=== PATIENT | female | born 1985 | race Caucasian/White ===

== ENCOUNTER 2023-11-11 10:35 | Emergency (ER) | payer BC, SELFPAY ==
[2023-11-11] VITALS (7 sets, daily range): BP systolic 97–126; BP diastolic 60–76; PULSE 64–88; RESP 16–20; TEMP 36.4–36.8; O2SAT 98–100; BMI 24.8
--- NOTE | ~2023-11-11 | MR_ITS ---
EXAMINATION: MR LUMBAR SPINE WITHOUT CONTRAST CLINICAL INFORMATION: Low back pain and incontinence. COMPARISON: None. TECHNIQUE: Multiplanar, multisequence imaging was obtained. FINDINGS: At the L5-S1 level, there is very mildly reduced intradiscal signal without loss of disc height. A broad-based, shallow left paracentral to left subarticular zone disc protrusion impresses upon the ventral thecal sac and the left S1 nerve root. No central canal stenosis is seen at this level. There is mild left foraminal narrowing from bulging disc and endplate spurring. The remaining lumbar discs are fairly well hydrated. Small inferior endplate Schmorl's node noted at the L2 level. The central canal and neural foramina in the remainder of the lumbar spine is widely patent. The marrow signal is normal. There are no subluxations or compression fractures. Mild to moderate loss of disc height with mild endplate spurring visible at the T11-T12 level. The cauda equina nerve roots are normal. The conus tip terminates at the lower L2 level. There is a thickened fatty filum seen from the L5 through sacral levels, which measures up to 2.8 mm TV. The paraspinal soft tissues are normal. Small 1 cm right renal cyst incidentally noted. The bladder is distended without wall thickening. MR/MR lumbar spine wo con IMPRESSION: Mild spondylosis at the L5-S1 level with a shallow, broad-based left paracentral/subarticular zone disc protrusion resulting in mild mass effect upon the left S1 nerve root. No central canal stenosis. Normal termination of the conus tip with a thickened fatty filum visible from the L5 through sacral levels. Correlate for any chronic symptoms of cord tethering phenomenon. Electronically signed by: Lv Payne MD 11/11/2023 02:40 PM EDT
--- NOTE | 2023-11-11 11:08 | ED_ITS ---
HPI - General Adult General Chief complaint: Back Pain/Injury Stated complaint: back pain-disc concerns Time Seen by Provider: 11/11/23 11:26 History of Present Illness ED Provider: Chalino PANDA narrative: Patient is a 38-year-old female. She has a history of bipolar disorder but is otherwise healthy and active. Until just a few days ago she has been living in [place], [place], but has since relocated to this area. About 3 or 4 weeks ago the patient was with family in [place] when she started to experience left lower back pain. Her symptoms continued until they became fairly severe and she ended up going to the [facility] Emergency room in [place]. She was treated and released in a few days later followed up with her primary care doctor in the [place] part of the [facility]. She was advised to go to a local emergency room and she went to the [facility] emergency room in [place]. She apparently had an overnight hospitalization. Apparently she was admitted for a low phosphorus level and also for pain control. She had an MRI that showed a bulging disc. She was discharged with pain medications and recommendations to start physical therapy. She has been told that she would need to be seen immediately if she had any worsening of her symptoms. She said that her symptoms were doing fairly well until this morning. She had no significant pain last night when she went to bed. She got up at around 06:00 this morning to go for a walk. She drove to a park and while sitting on a park bench after a walk she started to experience a recurrence of her left lower back pain. She got into her car and that seemed to make things worse. She drove home and laid in bed hoping things would feel better. She started to feel numbness in the left buttock and left leg. While lying in bed she suddenly felt wet and she believes that she had lost her urine without feeling it. She became quite frightened and drove herself to the emergency room. She has had no fever, sweats, chills. Related Data Previous Rx's ?Medication ?Instructions ?Recorded cyclobenzaprine 10 mg tablet 10 mg PO TID PRN muscle spasm #14 11/11/23 tabs hydromorphone 2 mg tablet 2 mg PO Q6H PRN pain #18 tabs 11/11/23 ibuprofen 400 mg tablet 400 mg PO Q6H PRN pain #20 tabs 11/11/23 sodium di- and 1 tab PO BID #30 tabs 11/11/23 monophosphate-potassium phos monobasic 250 mg tablet (Phosphorous) Allergies Allergy/AdvReac Type Severity Reaction Status Date / Time Iodinated Contrast Media AdvReac Unknown Verified 11/11/23 11:11 [Contrast Dye] Review of Systems 2 Review of Systems: Yes all other systems are reviewed and are negative [facility] Social History Social History Smoked in Last 30 Days: No Advance Directives: Yes Advance Directives Information Provided: Yes Advance Directives on File: No Do you have a plan to hurt others: No Plan Patient : No Physical Exam ED Vital Signs: Vital Signs - 24 hr 11/11/23 11:07 11/11/23 12:04 11/11/23 15:00 Temperature 97.6 F Pulse Rate 88 68 Respiratory Rate 16 16 16 Blood Pressure 126/76 113/70 Pulse Oximetry 98 100 98 Oxygen Delivery Method Room Air Room Air Room Air 11/11/23 15:03 11/11/23 15:33 11/11/23 15:57 Temperature 98.2 F Pulse Rate 64 66 Respiratory Rate 16 18 20 Blood Pressure 97/70 110/60 Pulse Oximetry 100 99 98 Oxygen Delivery Method Room Air Room Air Room Air 11/11/23 18:00 Temperature 98.2 F Pulse Rate 66 Respiratory Rate 20 Blood Pressure 110/60 Pulse Oximetry 98 Oxygen Delivery Method Room Air BMI result Body Mass Index 24.8 Const Other: The patient is a 38-year-old woman who looks as though she is ordinarily in good physical health. She seems uncomfortable and is very anxious. HENGA Other: The appearance of the face is normal. The face is symmetrical. Mucous membranes moist. Eyes Other: Pupils are round equal, conjunctivae are clear, extraocular movements intact. Neck Other: Moving her neck easily Resp Effort & Inspection: normal respiratory effort Auscultation: clear to auscultation bilaterally Cardio Rate: regular rate Rhythm: regular rhythm Heart sounds: S1 normal heart sound present and S2 normal heart sound present GI Other: Abdomen is soft and nontender Skin Other: Skin is dry and unremarkable Neuro Other: The patient is awake and alert with a normal mental status. Face is symmetrical, speech is clear, eye movements intact. She moves her arms normally. She moves her right leg normally. She is able to move the left leg but seems to have discomfort when she does so. No obvious definite loss of motor function. She reports diminished sensation in the leg and in the left buttock. She has 2+ symmetrical reflexes at the knees and ankles. The right toe got his down. The left toe is equivocal. Extrem Other: No calf swelling or tenderness, no peripheral edema Course Course Course Narrative: This is an RME performed by Az Eng CNP: Additional HPI, ROS, PE not included below will be deferred to primary provider. Patient is a 38 year old female presents emergency department for evaluation. She reports approximately 2 weeks ago she was evaluated at [facility] in [place]. She was experiencing lower back pain. She had an MRI which revealed a bulging disc, does not recall the exact location. She states that her phosphorus levels were also very lower time. She was advised to trial a course of physical therapy but given strict return precautions for re-evaluation. She states that today she was getting into bed when she had urinary incontinence any acknowledgement of it. She denies any chest pain bowel incontinence. She states that after this occurred she has noticed pain radiating down to her buttock and down the left leg with numbness and tingling which she does not previously experiencing. Ambulatory with slow steady gait Medications Administered Discontinued Medications Generic Name Dose Route Start Last Admin Trade Name Yolande PRN Reason Stop Dose Admin Cyclobenzaprine HCl 10 mg 11/11/23 16:55 11/11/23 17:35 Cyclobenzaprine Hcl 10 Mg Tablet PO 11/11/23 16:56 10 mg ONCE ONE Administration Hydromorphone HCl 0.5 mg 11/11/23 12:48 11/11/23 12:55 Hydromorphone Hcl 0.5 Mg/0.5 Ml Syringe IVPUSH 11/11/23 12:49 0.5 mg ONCE ONE Administration Protocol Hydromorphone HCl 0.5 mg 11/11/23 14:11 11/11/23 15:18 Hydromorphone Hcl 0.5 Mg/0.5 Ml Syringe IVPUSH 11/11/23 14:12 0.5 mg ONCE ONE Administration Protocol Hydromorphone HCl 2 mg 11/11/23 16:55 11/11/23 17:34 Hydromorphone Hcl 2 Mg Tablet PO 11/11/23 16:56 2 mg ONCE ONE Administration Sodium Chloride 1,000 mls @ 999 mls/hr 11/11/23 12:15 11/11/23 17:35 Ns IV 11/11/23 13:15 Infused .Q1H1M REVA Infusion Ibuprofen 400 mg 11/11/23 16:55 11/11/23 17:34 Ibuprofen 400 Mg Tablet PO 11/11/23 16:56 400 mg ONCE ONE Administration Ketorolac Tromethamine 10 mg 11/11/23 15:21 11/11/23 16:01 Ketorolac Tromethamine 15 Mg/Ml Vial IVPUSH 11/11/23 15:22 10 mg ONCE ONE Administration Lorazepam 1 mg 11/11/23 12:59 11/11/23 12:55 Lorazepam 2 Mg/Ml Vial IVPUSH 11/11/23 13:00 1 mg ONCE ONE Administration Morphine Sulfate 4 mg 11/11/23 11:49 11/11/23 12:02 Morphine Sulfate 4 Mg/Ml Cartridge IVPUSH 11/11/23 11:50 4 mg ONCE ONE Administration Protocol Ondansetron HCl 4 mg 11/11/23 11:56 11/11/23 12:02 Ondansetron Hcl 4 Mg/2 Ml Vial IVPUSH 11/11/23 11:57 4 mg ONCE ONE Administration Potassium Phos/Sodium Phos 2 packet 11/11/23 15:21 11/11/23 16:01 Sodium,Potassium Phosphates Powd.Pack PO 11/11/23 15:22 2 packet ONCE ONE Administration Medical Decision Making Medical Decision Making [facility] Narrative: The patient is a 38-year-old female who was recently hospitalized at [facility] in [place] for acute low back pain with findings of a herniated disc. She was discharged with plans to follow up with physical therapy and was doing well until this morning when she had a recurrence of her severe low back pain. The symptoms this morning or associated with a sense of numbness and tingling in the left buttock and left leg. She reports an episode of urinary incontinence in her bed as well. On exam the patient does not have a fever or seem toxic in any way. She has symmetrical reflexes at the knees and ankles. She reports diminished sensation in the left buttock and in the left leg generally. Given her description of the episode of urinary incontinence I felt an MR to evaluate for cauda equina was not unreasonable. The MR shows an L5-S1 disc herniation with mass effect on the left S1 nerve root but without central canal stenosis. The radiologist also notes a normal termination of the conus tip with a thickened fatty filum visible from the L5 through sacral levels. He recommended correlation for any chronic symptoms of cord tethering phenomenon. My overall take on the MR is that this does not represent an acute case of cauda equina or neurosurgical emergency. The patient was treated symptomatically with improvement in her pain. She was able to walk. She was able to void with essentially complete emptying of her bladder. No postvoid residual of any significance. Coincidentally the patient told me that when she has been hospitalized at [facility] she has been found to have a very low phosphorus level. Her phosphorus today is 1.0. It is not clear why she has this persistent problem. I will prescribe supplemental phosphorus in addition to pain medications for her left- sided sciatica syndrome. She was prescribed hydromorphone, cyclobenzaprine, and ibuprofen as needed for pain. The patient recently moved to this area from the [facility]. Her primary care doctor is in the [facility]. Additionally she plans on following up with the neurosurgeon at [facility]. She is advised to contact her PCP and the Neurosurgery office tomorrow to set up follow up care. Lab Data 11/11/23 12:00 11/11/23 12:00 Labs: Lab Results 11/11/23 11/11/23 Range/Units 12:00 16:22 WBC 9.1 (4.8-10.8) X10*3/uL RBC 4.55 (4.20-5.50) X10*6/uL Hgb 14.1 (12.0-16.0) g/dl Hct 41.6 (37.0-47.0) % MCV 91.4 (80.0-98.0) fL MCH 31.0 (27.0-33.0) pg MCHC 33.9 (31.0-35.0) g/dl RDW 12.1 (11.0-16.0) % Plt Count 395 (160-400) X10*3/uL MPV 9.9 (9.4-12.3) fL Immature Gran % (Auto) 0.4 (0.0-0.4) % Neut % (Auto) 88.0 H (45-73) % Lymph % (Auto) 8.9 L (20-40) % [place] % (Auto) 2.2 (2-11) % Eos % (Auto) 0.1 (0-4) % Baso % (Auto) 0.4 (0-2) % Lymph # (Auto) 0.8 L (1.2-4.9) X10*3/uL [place] # (Auto) 0.2 (0.1-1.2) X10*3/uL Eos # (Auto) 0.0 (0.0-0.4) X10*3/uL Baso # (Auto) 0.0 (0.0-0.2) X10*3/uL Abs Immat Gran (auto) 0.04 H (0.00-0.03) X10*3/uL Absolute Neuts (auto) 8.0 (2.0-8.3) x10*3/uL Absolute Nucleated RBC 0.000 (0.0-0.012) X10*3/uL Nucleated RBC % (auto) 0.0 (0.0-0.2) /100WBC Hold Purple Top SEE NOTE Sodium 138 (135-145) mmol/L Potassium 4.3 (3.3-5.1) mmol/L Chloride 105 (96-108) mmol/L Carbon Dioxide 22 (22-29) mmol/L Anion Gap 15 (12-20) BUN 12 (9-16) mg/dL Creatinine 0.91 (0.5-1.4) mg/dL Estim Creat Clear Calc 73.7 Estimated GFR > 60 Random Glucose 118 H (60-115) mg/dL Calcium 9.8 (8.4-10.2) mg/dL Phosphorus 1.0 L* (2.7-4.5) mg/dL Magnesium 2.0 (1.6-2.6) mg/dL Total Bilirubin 0.4 (0.0-1.0) mg/dL Direct Bilirubin 0.1 (0.0-0.5) mg/dL AST 26 (5-31) U/L ALT 31 (0-31) U/L Alkaline Phosphatase 176 H (39-117) U/L Total Protein 7.6 (6.5-8.0) g/dL Albumin 4.6 (3.5-5.0) g/dL Beta HCG, Quant < 2 mIU/mL Urine Color Yellow Urine Appearance Clear Urine pH 8.5 (5.0-9.0) Ur Specific [place] 1.010 (1.005-1.025) Urine Protein Negative (Neg-Trace) mg/dL Urine Glucose (UA) Negative (Negative) mg/dL Urine Ketones 15 (Negative) mg/dL Urine Blood Negative (Negative) Urine Nitrite Negative (Negative) Ur Leukocyte Esterase Negative (Negative) Discharge Plan Discharge Clinical Impression: Acute bilateral low back pain with left-sided sciatica, Herniation of intervertebral disc between L5 and S1, Left sided sciatica Patient Disposition: Home, Self-Care Additional Instructions: Your MRI today shows a herniated disc at L5-S1 but does not show findings of an acute neurosurgical emergency. I have sent prescriptions to help manage your pain to your pharmacy. These include hydromorphone (Dilaudid), cyclobenzaprine (Flexeril), and ibuprofen. In addition to using these medications you may take 2 extra-strength acetaminophen (Tylenol) up to 3 times a day as well. Your phosphorus today was also low. I have sent a prescription for supplemental phosphorus for you to take. Please plan on calling your regular doctor in the morning to discuss how you are doing. Also contact the Neurosurgery office in [place] you has been in contact with already. Please discuss plans for follow up for your herniated disc and to discuss your low phosphorus levels. Please start trying to work on getting a local primary care doctor as well. Return to the emergency room if significantly worse. Prescriptions: New cyclobenzaprine 10 mg tablet 10 mg PO TID PRN (Reason: muscle spasm) Qty: 14 0RF ibuprofen 400 mg tablet 400 mg PO Q6H PRN (Reason: pain) Qty: 20 0RF Phosphorous 250 mg tablet 1 tab PO BID Qty: 30 0RF hydromorphone 2 mg tablet 2 mg PO Q6H PRN (Reason: pain) Qty: 18 0RF Rx Instructions: Partial Fill upon patient request. Interventions: ED Discharge Assessment Last Done: 11/11/23 18:00 Discharge Date/Time: 11/11/23 18:02 Print Language: Mexican
[2023-11-11] MEDS: Morphine Sulfate 4 MG/ML CARTRIDGE IVPUSH (12:02)
[2023-11-11] MEDS: ondansetron HCL 4 MG/2 ML VIAL IVPUSH (12:02)
[2023-11-11 12:05] LABS: MANUAL DIFF FLAG NO
[2023-11-11 12:08] LABS: Basophils Percent Auto 0.4 % (0-2); Eosinophils Percent Auto 0.1 % (0-4); Hematocrit 41.6 % (37.0-47.0); Hemoglobin 14.1 g/dl (12.0-16.0); Imm Gran Abs Auto 0.04 X10*3/uL (0.00-0.03); Imm Gran Pct Auto 0.4 % (0.0-0.4); Lymphocytes Absolute Auto 0.8 X10*3/uL (1.2-4.9); Lymphocytes Percent Auto 8.9 % (20-40); Mean Corpuscular HGB Conc 33.9 g/dl (31.0-35.0); Mean Corpuscular Volume 91.4 fL (80.0-98.0); Mean Platelet Volume 9.9 fL (9.4-12.3); Monocytes Absolute Auto 0.2 X10*3/uL (0.1-1.2); Monocytes Percent Auto 2.2 % (2-11); Platelet Count 395 X10*3/uL (160-400); Red Blood Count 4.55 X10*6/uL (4.20-5.50); Red Cell Distribution Width 12.1 % (11.0-16.0); White Blood Count 9.1 X10*3/uL (4.8-10.8)
[2023-11-11] MEDS: 0.9 % Sodium Chloride 1,000 ML 999 ML IV (12:08)
[2023-11-11 12:37] LABS: Alanine Aminotransferase 31 U/L (0-31); Albumin Level 4.6 g/dL (3.5-5.0); Alkaline Phosphatase 176 U/L (39-117); Anion Gap 15 (12-20); Aspartate Amino Transferase 26 U/L (5-31); Bilirubin Direct 0.1 mg/dL (0.0-0.5); Bilirubin Total 0.4 mg/dL (0.0-1.0); Blood Urea Nitrogen 12 mg/dL (9-16); Calcium 9.8 mg/dL (8.4-10.2); Carbon Dioxide 22 mmol/L (22-29); Chloride 105 mmol/L (96-108); Creatinine Clr Calc Pharmacy 73.7; Estimated Glomerular Filt Rate > 60; Glucose Random 118 mg/dL (60-115); Potassium 4.3 mmol/L (3.3-5.1); Sodium 138 mmol/L (135-145); Total Protein 7.6 g/dL (6.5-8.0)
[2023-11-11] MEDS: LORazepam 2 MG/ML VIAL 1 MG IVPUSH (12:55)
[2023-11-11] MEDS: HYDROmorphone HCl 0.5 MG/0.5 ML SYRINGE IVPUSH ×2 (12:55→15:18)
[2023-11-11 13:08] LABS: HCG Quantitative < 2 mIU/mL
--- NOTE | 2023-11-11 15:20 | ECG_ITS ---
Test Reason : BACK PAIN Blood Pressure : / mmHG Vent. Rate : 064 BPM Atrial Rate : 064 BPM P-R Int : 126 ms QRS Dur : 080 ms QT Int : 432 ms P-R-T Axes : -23 048 033 degrees QTc Int : 445 ms Normal sinus rhythm Normal ECG No previous ECGs available Referred By: Alex Allred Electronically Signed By:CARLOS JIMENEZ
[2023-11-11] MEDS: Ketorolac Tromethamine 15 MG/ML VIAL 10 MG IVPUSH (16:01)
[2023-11-11] MEDS: Sodium,Potassium Phosphates POWD.PACK 2 PACKET PO (16:01)
--- NOTE | 2023-11-11 16:33 | PC.NURSE ---
able to ambulate to bathroom with minimal assist. reports slight dizziness but was steady on feet. just slow.
[2023-11-11 16:42] LABS: Appearance Urine Clear; Color Urine Yellow; Glucose Urine UA Negative (Negative); Leukocyte Esterase Urine Negative (Negative); Nitrite Urine Negative (Negative); PH 8.5 (5.0-9.0); Urine Blood Negative (Negative); Urine Ketones 15 mg/dL (Negative); Urine Protein Negative (Neg-Trace)
[2023-11-11] MEDS: HYDROmorphone HCl 2 MG TABLET PO (17:34)
[2023-11-11] MEDS: Ibuprofen 400 MG TABLET PO (17:34)
[2023-11-11] MEDS: Cyclobenzaprine HCl 10 MG TABLET PO (17:35)
== END 2023-11-11 18:02 | disposition home or self-care (01) ==
PROVIDERS: Emergency Provider Emergency Medicine
DX: M54.42 Lumbago with sciatica, left side (principal); M54.41 Lumbago with sciatica, right side; M51.27 Other intervertebral disc displacement, lumbosacral region; M79.605 Pain in left leg; R10.2 Pelvic and perineal pain; Z79.899 Other long term (current) drug therapy
CPT/HCPCS: 36415; 51798; 72148; 80048; 80076; 81003; 83735; 84100; 84702; 85025; 93005; 96372; 96374; 96375; 96376; 99284; 99285; J1170; J1885; J2060; J2270; J2405

== ENCOUNTER 2024-07-23 21:07 | Emergency (ER) | payer BC, SELFPAY ==
--- NOTE | ~2024-07-23 | CT_ITS ---
CLINICAL HISTORY: left flank pain, ureetral stone? CT abdomen and pelvis without contrast Comparison: None Findings: Minor dependent atelectasis at the lung bases. Cholecystectomy. Abdominal solid organs unremarkable. No urolithiasis. No bowel obstruction, pneumoperitoneum, or pneumatosis. Moderate to large amount of stool. No body wall hernia. Uterus and ovaries unremarkable. Appendectomy. Physiologic amount of fluid in the pelvis. No acute fracture. IMPRESSION: 1. No urolithiasis or hydronephrosis. 2. Moderate to large amount of stool without bowel obstruction. This document has been electronically signed by: Real Akers MD on 07/23/2024 23:09:28
[2024-07-23 21:10] VITALS: BP 124/81; PULSE 100; RESP 16; TEMP 36.9; O2SAT 99; BMI 23.1
[2024-07-23 21:36] LABS: Basophils Percent Auto 0.2 % (0-2); Eosinophils Absolute Auto 0.1 X10*3/uL (0.0-0.4); Eosinophils Percent Auto 0.5 % (0-4); Hematocrit 33.8 % (37.0-47.0); Hemoglobin 11.3 g/dl (12.0-16.0); Imm Gran Abs Auto 0.03 X10*3/uL (0.00-0.03); Imm Gran Pct Auto 0.3 % (0.0-0.4); Lymphocytes Absolute Auto 0.8 X10*3/uL (1.2-4.9); Lymphocytes Percent Auto 8.5 % (20-40); MANUAL DIFF FLAG SCAN; Mean Corpuscular HGB Conc 33.4 g/dl (31.0-35.0); Mean Corpuscular Hemoglobin 30.9 pg (27.0-33.0); Mean Corpuscular Volume 92.3 fL (80.0-98.0); Mean Platelet Volume 9.9 fL (9.4-12.3); Monocytes Absolute Auto 1.7 X10*3/uL (0.1-1.2); Monocytes Percent Auto 17.2 % (2-11); Neutrophils Absolute Auto 7.1 x10*3/uL (2.0-8.3); Neutrophils Percent Auto 73.3 % (45-73); Platelet Count 219 X10*3/uL (160-400); Red Blood Count 3.66 X10*6/uL (4.20-5.50); SCAN SMEAR FLAG 1; White Blood Count 9.8 X10*3/uL (4.8-10.8)
[2024-07-23 21:41] LABS: Appearance Urine Clear; Color Urine Dark Yellow; Glucose Urine UA Negative (Negative); Leukocyte Esterase Urine Large (3+) (Negative); Nitrite Urine Negative (Negative); Specific Gravity - Urine 1.015 (1.005-1.025); UMIC TRIGGER UACC YES; Urine Blood Moderate (2+) (Negative); Urine Ketones Negative (Negative); Urine Protein 30 (1+) mg/dL (Neg-Trace)
[2024-07-23 21:44] LABS: UPreg QC Valid YES; Urine Pregnancy NEGATIVE (NEGATIVE)
[2024-07-23 21:50] LABS: Alanine Aminotransferase 103 U/L (0-31); Albumin Level 3.7 g/dL (3.5-5.0); Alkaline Phosphatase 242 U/L (39-117); Anion Gap 11 (12-20); Aspartate Amino Transferase 52 U/L (5-31); Bilirubin Total 0.8 mg/dL (0.0-1.0); Blood Urea Nitrogen 8 mg/dL (9-16); Calcium 8.9 mg/dL (8.4-10.2); Carbon Dioxide 25 mmol/L (22-29); Chloride 107 mmol/L (96-108); Creatinine Clr Calc Pharmacy 100.9; Estimated Glomerular Filt Rate > 60; Glucose Random 135 mg/dL (60-115); Magnesium 1.9 mg/dL (1.6-2.6); Potassium 3.2 mmol/L (3.3-5.1); Sodium 140 mmol/L (135-145); Total Protein 6.2 g/dL (6.5-8.0)
[2024-07-23 21:53] LABS: Bacteria Urine 1+ (None Seen); Hyaline Casts Urine 0-2 /LPF (0-2); RBC Urine 0-2 /HPF (0-2); UACC Culture Trigger YES
[2024-07-23 21:56] LABS: SLIDE REVIEW VERIFIED
[2024-07-23 22:12] LABS: Influenza A PCR NEGATIVE (Negative); Influenza B PCR NEGATIVE (Negative); Resp Syncy Virus RNA Qual PCR NEGATIVE (Negative); SARS COV2 PCR INHOUSE NEGATIVE (Negative)
[2024-07-23] MEDS: 0.9 % Sodium Chloride 1,000 ML 999 ML IV (23:10)
--- NOTE | 2024-07-23 23:13 | PC.NURSE ---
This RN assumed pt care @ 2300. Pt a&ox4, no signs of distress. Pt denies pain at this time Pts family at bedside IV placed Pt medicated per [facility] Plan of care ongoing.
[2024-07-23 23:30] VITALS: BP 100/61; PULSE 74; RESP 16; O2SAT 97
--- NOTE | 2024-07-23 23:41 | ED_ITS ---
HPI - General Adult General Chief complaint: Weakness Stated complaint: fever, chills, headache, stiff neck dizziness Time Seen by Provider: 07/23/24 22:13 Source: patient Limitations: no limitations History of Present Illness ED Provider: Melyssa Stewart PA-C HPI narrative: 39-year-old female presents with multiple complaints. Patient states she has had viral related symptoms including weakness, subjective fever, lethargy body aches for a week. She went to urgent Care she was found to have a urinary tract infection, she has been on antibiotics for a day and a half. Patient also states she has been having mid back discomfort and lower abdominal discomfort. Patient began to have nausea vomiting today. Denies dysuria, hematuria or history of kidney stones. Patient is currently taking Macrobid. Related Data Previous Rx's ?Medication ?Instructions ?Recorded cyclobenzaprine 10 mg tablet 10 mg PO TID PRN muscle spasm #14 11/11/23 tabs hydromorphone 2 mg tablet 2 mg PO Q6H PRN pain #18 tabs 11/11/23 ibuprofen 400 mg tablet 400 mg PO Q6H PRN pain #20 tabs 11/11/23 sodium di- and 1 tab PO BID #30 tabs 11/11/23 monophosphate-potassium phos monobasic 250 mg tablet (Phosphorous) ondansetron HCl 4 mg tablet 4 mg PO Q8H PRN nausea and 07/23/24 vomiting #10 tabs Allergies Allergy/AdvReac Type Severity Reaction Status Date / Time Iodinated Contrast Media AdvReac Anaphylaxis Verified 07/23/24 21:15 [Contrast Dye] Review of Systems 2 Review of Systems: Yes all other systems are reviewed and are negative Constitutional: Constitutional: Reports chills, Reports fatigue, Denies fever(s) and Reports malaise Cardiovascular: Cardiovascular: Denies chest pain and Denies dyspnea Respiratory: Respiratory: Denies cough and Denies dyspnea Gastrointestinal: Gastrointestinal: Reports abdominal pain, Denies constipation, Reports nausea and Reports vomiting Genitourinary: Genitourinary: Denies hematuria, Denies dysuria and Denies pelvic pain Musculoskeletal: Musculoskeletal: Reports back pain Endocrine: Endocrine: Reports fatigue PMFSH Past Medical History Attestation statement: The following information was validated with the patient. Social History Social History Smoked in Last 30 Days: No Use of substances other than those prescribed or required for medical reasons: No Advance Directives: No Advance Directives Information Provided: No Do you have a plan to hurt others: No Plan Patient : No Physical Exam ED Vital Signs: Vital Signs - 24 hr 07/23/24 21:10 07/23/24 23:30 Temperature 98.5 F Pulse Rate 100 74 Respiratory Rate 16 16 Blood Pressure 124/81 100/61 Pulse Oximetry 99 97 Oxygen Delivery Method Room Air Room Air BMI result Body Mass Index 23.1 Const Other: Alert well-appearing Orientation/consciousness: patient oriented x3 Resp Effort & Inspection: normal respiratory effort Cardio Other: Normal peripheral perfusion General: Yes no CVA tenderness Back/Spine/Pelvis Back: no CVA tenderness Skin Other: Warm dry no rash Neuro General: patient oriented x3, gait normal, no focal motor deficits and CN's II- XI intact bilaterally Psych Other: Cooperative Medications Administered Discontinued Medications Generic Name Dose Route Start Last Admin Trade Name Freq PRN Reason Stop Dose Admin Sodium Chloride 1,000 mls @ 999 mls/hr 07/23/24 22:30 07/23/24 23:10 Ns IV 07/23/24 23:30 999 mls/hr .Q1H1M [facility] Administration Medical Decision Making Medical Decision Making MDM Narrative: 39-year-old female presents with multiple complaints. Patient states she has had viral related symptoms including weakness, subjective fever, lethargy body aches for a week. She went to urgent Care she was found to have a urinary tract infection, she has been on antibiotics for a day and a half. Patient also states she has been having mid back discomfort and lower abdominal discomfort. Patient began to have nausea vomiting today. Denies dysuria, hematuria or history of kidney stones. Patient is currently taking Macrobid. No chronic issues History: Per patient I have considered the following differential diagnoses: Pyelonephritis, UTI, renal colic, viral syndrome Plan: Given concurrent abdominal pain and back pain, we will be obtaining a CT scan, perhaps she is passing a kidney stone. Doubtful to be pyelo given no CVA tenderness. She is not febrile here in the emergency department. Screening labs including a urinalysis were obtained, still evidence of a UTI. But she just began treatment. I have independently reviewed the following tests: Labs: No leukocytosis, not anemic, no electrolyte abnormality, LFTs subtly elevated, not , urine appears infected CT abdomen and pelvis:IMPRESSION: 1. No urolithiasis or hydronephrosis. 2. Moderate to large amount of stool without bowel obstruction. Lab Data 07/23/24 21:29 07/23/24 21:29 Labs: Lab Results 07/23/24 Range/Units 21:29 WBC 9.8 (4.8-10.8) X10*3/uL RBC 3.66 L (4.20-5.50) X10*6/uL Hgb 11.3 L (12.0-16.0) g/dl Hct 33.8 L (37.0-47.0) % MCV 92.3 (80.0-98.0) fL MCH 30.9 (27.0-33.0) pg MCHC 33.4 (31.0-35.0) g/dl RDW 12.0 (11.0-16.0) % Plt Count 219 D (160-400) X10*3/uL MPV 9.9 (9.4-12.3) fL Immature Gran % (Auto) 0.3 (0.0-0.4) % Neut % (Auto) 73.3 H (45-73) % Lymph % (Auto) 8.5 L (20-40) % Bonner % (Auto) 17.2 H (2-11) % Eos % (Auto) 0.5 (0-4) % Baso % (Auto) 0.2 (0-2) % Lymph # (Auto) 0.8 L (1.2-4.9) X10*3/uL Bonner # (Auto) 1.7 H (0.1-1.2) X10*3/uL Eos # (Auto) 0.1 (0.0-0.4) X10*3/uL Baso # (Auto) 0.0 (0.0-0.2) X10*3/uL Abs Immat Gran (auto) 0.03 (0.00-0.03) X10*3/uL Absolute Neuts (auto) 7.1 (2.0-8.3) x10*3/uL Absolute Nucleated RBC 0.000 (0.0-0.012) X10*3/uL Nucleated RBC % (auto) 0.0 (0.0-0.2) /100WBC Smear Tech's Comments VERIFIED Sodium 140 (135-145) mmol/L Potassium 3.2 L D (3.3-5.1) mmol/L Chloride 107 (96-108) mmol/L Carbon Dioxide 25 (22-29) mmol/L Anion Gap 11 L (12-20) BUN 8 L (9-16) mg/dL Creatinine 0.58 (0.5-1.4) mg/dL Estim Creat Clear Calc 100.9 Estimated GFR > 60 Random Glucose 135 H (60-115) mg/dL Calcium 8.9 D (8.4-10.2) mg/dL Magnesium 1.9 (1.6-2.6) mg/dL Total Bilirubin 0.8 (0.0-1.0) mg/dL AST 52 H (5-31) U/L ALT 103 H (0-31) U/L Alkaline Phosphatase 242 H (39-117) U/L Total Protein 6.2 L (6.5-8.0) g/dL Albumin 3.7 (3.5-5.0) g/dL Urine Color Dark Yellow Urine Appearance Clear Urine pH 6.0 (5.0-9.0) Ur Specific [place]coe 1.015 (1.005-1.025) Urine Protein 30 (1+) H (Neg-Trace) mg/dL Urine Glucose (UA) Negative (Negative) mg/dL Urine Ketones Negative (Negative) mg/dL Urine Blood Moderate (2+) H (Negative) Urine Nitrite Negative (Negative) Ur Leukocyte Esterase Large (3+) H (Negative) Urine RBC 0-2 (0-2) /HPF Urine WBC 11-20 (0-5) /HPF Ur Squamous Epith Cells 6-10 (0-2) /HPF Urine Bacteria 1+ (None Seen) Hyaline Casts 0-2 (0-2) /LPF Urine Test NEGATIVE (NEGATIVE) Influenza Type A (PCR) NEGATIVE (Negative) Influenza Type B (PCR) NEGATIVE (Negative) RSV RNA Qual (PCR) NEGATIVE (Negative) SARS-CoV-2 RNA (RT-PCR) NEGATIVE (Negative) Discharge Plan Discharge Clinical Impression: Urinary tract infection, Constipation Patient Disposition: Home, Self-Care Instructions: Constipation (ED), Urinary Tract Infection in Women (ED), Potassium Content of Foods List (ED) Additional Instructions: The CT scan revealed that you are constipated. See home care instructions. Use [id number] Colace twice a day. Use [id number] MiraLax either several times a day, or every hour, until you begin having multiple large volume bowel movements. Follow up with your primary care provider as needed. Your potassium was subtly low, this could be secondary to your vomiting. See the list of potassium rich foods I have provided to you. Uses Zofran as needed for nausea. Prescriptions: New ondansetron HCl 4 mg tablet 4 mg PO Q8H PRN (Reason: nausea and vomiting) Qty: 10 0RF No Action cyclobenzaprine 10 mg tablet 10 mg PO TID PRN (Reason: muscle spasm) Qty: 14 0RF ibuprofen 400 mg tablet 400 mg PO Q6H PRN (Reason: pain) Qty: 20 0RF Phosphorous 250 mg tablet 1 tab PO BID Qty: 30 0RF hydromorphone 2 mg tablet 2 mg PO Q6H PRN (Reason: pain) Qty: 18 0RF Rx Instructions: Partial Fill upon patient request. Stand Alone Forms: Work/School Release Print Language: Bhutanese
[2024-07-24] VITALS: BP 98/57; PULSE 76; RESP 14; TEMP 36.9; O2SAT 97
[2024-07-24 00:35] VITALS: BP 98/57; PULSE 76; RESP 14; TEMP 36.9; O2SAT 97
== END 2024-07-24 00:36 | disposition home or self-care (01) ==
PROVIDERS: Emergency Provider Internal Medicine
DX: K59.00 Constipation, unspecified (principal); N39.0 Urinary tract infection, site not specified; R53.1 Weakness; R11.2 Nausea with vomiting, unspecified; Z03.818 Encounter for observation for suspected exposure to other biological agents ruled out
CPT/HCPCS: 0241U; 74176; 80053; 81001; 81025; 83735; 85025; 87086; 96360; 99284

== ENCOUNTER → 2024-07-23 22:18 | Outpatient (BNV) | payer BC, SELFPAY | PROVIDERS: Emergency Provider Internal Medicine; Visit Provider Radiology Diagnostic Radiology | DX: K56.41 Fecal impaction (principal) | CPT/HCPCS: 74176 ==